=== PATIENT | female | born 1990 ===

== ENCOUNTER 2016-11-28 10:28 | Emergency (ER) | payer MEDICAID, OTHER ==
[2016-11-28 10:37] VITALS: TEMP 97.5
[2016-11-28 11:21] LABS: URINE BILIRUBIN NEGATIVE (NEGATIVE); URINE CLARITY Hazy (Clear); URINE COLOR RED (YELLOW); URINE GLUCOSE (UA) NORMAL (Normal)
[2016-11-28 11:22] LABS: SQUAMOUS EPITHIAL 7 /hpf (0-5); URINE BLOOD 3+ (NEGATIVE); URINE LEUKOCYTE ESTERASE NEGATIVE Leu/uL (Negative); URINE NITRATE NEGATIVE (NEGATIVE); URINE PROTEIN 2+ mg/dL (NEGATIVE); URINE UROBILINOGEN NORMAL mg/dL (0.2-1.0)
[2016-11-28] MEDS ORDERED: Sodium Chloride 0.9% 1,000 ML IV ONE (11:39)
[2016-11-28] MEDS ORDERED: Sodium Chloride 0.9% 1,000 ML ONE (11:48)
[2016-11-28 11:55] LABS: BASO % 0.3 % (0.0-2.0); EOS % 0.3 % (0.0-4.0); HEMOGLOBIN 14.8 g/dL (11.0-16.0); LYMPH # 0.5 K/uL (1.0-4.3); LYMPH % 5.6 % (20.0-40.0); MEAN CELL VOLUME 98.5 fL (81.0-99.0); MEAN CORPUSCULAR HEMOGLOBIN 33.4 pg (27.0-31.0); MEAN CORPUSCULAR HGB CONC 33.9 g/dL (33.0-37.0); MONO # 0.4 K/uL (0.0-0.8); MONO % 4.7 % (0.0-10.0); NEUT # 7.3 K/uL (1.8-7.0); NEUT % 89.1 % (50.0-75.0); PLATELET COUNT 213 K/uL (130-400); RBC 4.42 Mil/uL (3.80-5.20); RED CELL DISTRIBUTION WIDTH 13.9 % (11.5-14.5); WHITE BLOOD COUNT 8.2 K/uL (4.8-10.8)
[2016-11-28 12:04] LABS: ALBUMIN 3.5 g/dL (3.5-5.0)
[2016-11-28 12:06] LABS: GFR AFRICAN-AMERICAN > 60; GFR NON-AFRICAN AMERICAN > 60
[2016-11-28 12:07] LABS: ALT/SGPT 29 U/L (9-52); AST/SGOT 26 U/L (14-36); BLOOD UREA NITROGEN 13 mg/dL (7-17); CALCIUM 8.3 mg/dl (8.6-10.4); LIPASE 44 U/L (23-300)
[2016-11-28 12:37] LABS: BANDS 2 % (0-2); LYMPHOCYTE 9 % (20-40); MONOCYTE 6 % (0-10); NEUTROPHIL 83 % (50-75); PLATELET ESTIMATE NORMAL (NORMAL); TOTAL CELLS COUNTED 100
--- NOTE | 2016-11-28 12:45 | C.PDOC ---
History Of Present Illness 26 yr old female presents to the ER with complaints of 1 episode of loose stool yesterday and abdominal discomfort in the evening after eating some chicken take out. Patient also complaints of 1 episode of loose stool and light headedness this morning and epigastric pain. Patient denies sick contact, fever , chills, dysuria, incontinence or hematuria. Time Seen by Provider: 11/28/16 10:44 Chief Complaint (Nursing): Abdominal Pain History Per: Patient History/Exam Limitations: no limitations Onset/Duration Of Symptoms: Days (1) Past Medical History Reviewed: Historical Data, Nursing Documentation, Vital Signs Vital Signs: Last Vital Signs Temp 97.5 F L 11/28/16 10:34 Pulse 105 H 11/28/16 10:34 Resp 20 11/28/16 10:34 BP 114/81 11/28/16 10:34 Pulse Ox 96 11/28/16 12:53 Family History: States: No Known Family Hx - Social History Hx Alcohol Use: Yes Hx Substance Use: No - Immunization History Hx Tetanus Toxoid Vaccination: Yes Hx Influenza Vaccination: No Hx Pneumococcal Vaccination: No Review Of Systems Constitutional: Negative for: Fever, Chills Gastrointestinal: Positive for: Vomiting, Abdominal Pain, Diarrhea (Loose stool) Genitourinary: Negative for: Dysuria, Incontinence Physical Exam - Physical Exam Appears: Non-toxic, No Acute Distress Skin: Warm, Dry, No Rash Head: Atraumatic, Normacephalic Chest: Symmetrical, No Tenderness Cardiovascular: Rhythm Regular, No Murmur Respiratory: Normal Breath Sounds, No Rales, No Rhonchi, No Stridor, No Wheezing Gastrointestinal/Abdominal: Soft, Tenderness (Mild epigastric tenderness. ), No Guarding, No Rebound, Other ((-) Montiel signs.) Back: Normal Inspection, No CVA Tenderness Extremity: Normal ROM, No Swelling Neurological/Psych: Oriented x3, Normal Speech, Normal Motor, Normal Sensation ED Course And Treatment - Laboratory Results Result Diagrams: 11/28/16 11:50 11/28/16 11:50 O2 Sat by Pulse Oximetry: 96 (RA) Pulse Ox Interpretation: Normal Medical Decision Making Medical Decision Making: PLAN: * CBC * CMP * HCG * Urinalysis * Pepcid IVP * Zofran IVP * Sodium Chloride IV 22 pm pt feels much better, tolerates po fluids, ab soft, nd, nt on re-exam, will d/c with pepcid. Disposition Counseled Patient/Family Regarding: Studies Performed, Diagnosis, Need For Followup, Rx Given - Disposition Referrals: Eloy Perez MD [Medical Doctor] - Disposition: HOME/ ROUTINE Disposition Time: 14:24 Condition: IMPROVED Additional Instructions: Eat bland diet for next few days. Avoid spicy food, tomatoes, citrus products. Tske Pepcid as directed. Follow up with your doctor in a few days Return to Er for nay worsening symptom. Prescriptions: Famotidine [Pepcid] 20 mg PO DAILY #14 tab Instructions: Gastroenteritis (ED) Forms: [employer] (Hebrew) - Clinical Impression Clinical Impression: Gastroenteritis - PA / [employer] / Resident Statement MD/DO has reviewed & agrees with the documentation as recorded. - Scribe Statement The provider has reviewed the documentation as recorded by the Scribe Lyudmila Durán All medical record entries made by the Scribe were at my direction and personally dictated by me. I have reviewed the chart and agree that the record accurately reflects my personal performance of the history, physical exam, medical decision making, and the department course for this patient. I have also personally directed, reviewed, and agree with the discharge instructions and disposition.
[2016-11-28 14:36] VITALS: BP 134/72; PULSE 78; RESP 16; O2SAT 99
== END 2016-11-28 14:36 | disposition home or self-care (01) ==
LOC: C.ER 10:28
DX: K52.9 Noninfective gastroenteritis and colitis, unspecified (principal)
CPT/HCPCS: 80053; 81001; 83690; 84703; 85025; 96361; 96374; 96375; 99283; J2405; J7040